=== PATIENT | male | born 1965 | race Caucasian/White ===

== ENCOUNTER 2017-05-14 16:14 | Emergency (ER) | payer BC, OTHER ==
[2017-05-14] MEDS ORDERED: NORMAL SALINE 1,000 ML IV ONE (16:39)
[2017-05-14] MEDS ORDERED: LORazepam 2 MG/ML DISP.SYRIN IV ONE (16:39)
[2017-05-14] MEDS ORDERED: ONDANSETRON HCL/PF 2 MG/ML VIAL IV ONE (16:40)
[2017-05-14 16:54] LABS: Hematocrit 40.7 % (42.0-52.0); Hemoglobin 14.7 gm/dL (13.5-18.0); Mean Corpuscular Hemoglobin 33.9 pg (27-31); Mean Corpuscular Hgb Conc 36.1 g/dl (32-36); Mean Platelet Volume 10.6 fl (6.0-9.5); Neutrophil # 6.5 K/mm3 (1.3-6.0); Neutrophil % 82.2 % (42-75.0); Platelet Count 431 K/mm3 (150-450); Red Blood Count 4.33 M/mm3 (4.7-6.0); Red Cell Distribution Width 12.3 % (11.5-14.0); White Blood Count 7.8 K/mm3 (4.0-10.5)
[2017-05-14] MEDS ORDERED: ONDANSETRON HCL/PF 2 MG/ML VIAL ONE (17:10)
[2017-05-14] MEDS ORDERED: LORazepam 2 MG/ML DISP.SYRIN ONE (17:10)
[2017-05-14 17:13] LABS: Albumin * 4.1 gm/dl (3.4-5.0); BUN/Creatinine Ratio 16.8 (9.0-21.6); Bilirubin, Total 0.8 mg/dL (0.0-1.1); Ca. Corrected For Albumin 9.5 mg/dL (8.4-10.2); Calcium * 9.9 mg/dL (7.9-10.9); Carbon Dioxide 26.9 mmol/L (24-32.6); Potassium 3.9 mmol/L (3.4-4.6); Total Protein 8.6 gm/dL (6.2-8.2)
[2017-05-14] MEDS ORDERED: DIATRIZOATE MEGLUMINE, SODIUM 30 ML BTL PO ONE (18:35)
[2017-05-14 18:40] LABS: Urine Bilirubin 1 mg/dl (NEGATIVE); Urine Blood Negative /ul (NEGATIVE); Urine Ketone 15 mg/dL (NEGATIVE); Urine Nitrite Negative (NEGATIVE); Urine Protein 15 mg/dL (NEGATIVE); Urine Urobilinogen Normal (NORMAL); Urine pH 7.5 pH (5.0-7.0)
--- NOTE | 2017-05-14 18:41 | ERNOTE ---
<PitaYong - Last Filed: 05/14/17 19:39> Abdominal HPI - Narrative Date of Service: 05/14/17 - General Chief Complaint: Abdominal Pain Time Seen by Provider: 05/14/17 16:31 Source: patient Exam Limitations: no limitations - Immun/Allergies/Home Medications Immunizatons: IMMUNIZATION HX Immunizations Up to Date No History of Influenza Vaccine No Hx Pneumococcal Vaccination No Allergies/Adverse Reactions: Allergies No Known Allergies Allergy (Unverified 05/14/17 16:37) Home Medications: HOME MEDICATIONS Omeprazole [Prilosec] 40 mg PO DAILY #14 cap 05/14/17 [Last Taken Unknown] Sucralfate [Carafate] 1 gm PO QID #60 oral.susp 05/14/17 [Last Taken Unknown] - History of Present Illness Narrative: Patient presents to the ED for vomiting and abdominal pain. her relates several episodes in the past of severe upper abdominal abd back pain. He has never been seen for these but he was treated at home like a pancreatitis with bowel rest, clear liquids and these Sx would eventually pass. Over the last 4 days he has had 2 severe episodes of this with severe back pain adn upper abdominal pain and recurrent vomiting. Right now he is nauseated but his pain is better, now mild but was severe earlier. He does drink hard liquor dailt, approx 350ml or more per day. No low abdominal pain. no CP or SOB. Has never seen anyone else for this. Timing: intermittent Quality: severe Activities at Onset: none Modifying Factors - (Improves): Present: other - nothing Modifying Factors - (Worsens): Present: other - nothing Associated Symptoms: Present: vomiting, loss of appetite. Absent: chest pain, fever/chills, shortness of breath, swelling/mass in abdomen Prior Abdominal Problems: Present: similar symptoms Prior Treatment: Absent: recently seen Review of Systems - Review of Systems Constitutional: Absent: fever Respiratory: Absent: shortness of breath Cardiology: Absent: chest pain Gastrointestinal/Abdominal: Present: See HPI Genitourinary: Absent: dysuria Skin: Absent: rash Neurological: Absent: weakness All Other Systems: All systems neg except as marked - Patient's Past Medical History Patient History - Medical: Other Patient History - Cardiac/Respiratory: No pertinent hx Patient History - Cancer: No Hx of Cancer Patient History - Surgical Procedures: Noncontributory Patient History - Other: None - Social History Living Situations: home Psych History: No pertinent hx Smoking Status: Never smoker Have you smoked in the past 12 months: No Do you dip or chew tobacco: Yes Alcohol Use: heavy Drug Use: none - Immunizations Immunizations Up to Date: No Hx Pneumococcal Vaccination: No History of Influenza Vaccine: No Physical Exam - Physical Exam General Appearance: Present: alert, no apparent distress Head Exam: Present: normal inspection, no evidence of injury Eye Exam: Normal inspection: bilateral, PERRL: bilateral Ears, Nose, Throat: Present: normal ENT inspection Neck: Present: normal inspection, nontender Respiratory: Present: no respiratory distress, normal breath sounds, no accessory muscle use Cardiovascular/Chest: Present: regular rate, rhythm, normal peripheral pulses Gastrointestinal/Abdominal: Present: normal bowel sounds, nondistended, soft, no organomegaly, other - mild epigastric tendenress. No masses. No guarding or rebound Back Exam: Absent: CVA tenderness (R), CVA tenderness (L) Extremity Exam: Present: normal inspection Neurological Exam: Present: alert, normal mood/affect, no motor/sensory deficits Skin Exam: Present: normal color, warm/dry ED Progress - Results and Orders Patient's Lab Results:: I have reviewed the patient's lab results. - Vital Signs Patient's Vital Signs:: I have reviewed the patient's vital signs. Vital Signs: Vital Signs 05/14/17 16:22 Temperature 36.8 C Pulse Rate 96 Respiratory 20 Rate O2 Sat by Pulse 99 Oximetry - EKG EKG: NSR EKG read: Interp. by me EKG Comments: NSR rate 79. Non-specific ST/T wave changes, no STEMI. - X-Ray X-Ray #1 X-Ray: abdomen Interpretation: Interp. by me X-ray Comments: No real-time radiology reads. No clear obstruction. No clear acute abnormality. - Progress/Reassessment Chief Complaint: Abdominal Pain Progress Note-Subjective: 05/14/17 18:40 Given his Sx will obtain CT. Checked out to Dr Villalobos at shift change pending CT. - Transfer of Care Physician Sign Out: Yong Lema Receiving Physician: Will Villalobos Pending Results: CT/MRI results Departure Clinical Impression: Abdominal pain Qualifiers: Abdominal location: epigastric Qualified Code(s): R10.13 - Epigastric pain Gastritis Qualifiers: Gastritis type: alcoholic Chronicity: acute Gastritis bleeding: presence of bleeding unspecified Qualified Code(s): K29.20 - Alcoholic gastritis without bleeding - Departure Disposition: Home self-care Condition: Stable Instructions: Gastritis, Adult, [id number] Additional Instructions: See your primary care provider in 1-2 weeks. Prescriptions: Omeprazole [Prilosec] 40 mg PO DAILY #14 cap Sucralfate [Carafate] 1 gm PO QID #60 oral.susp <Will Villalobos - Last Filed: 05/15/17 07:11> Abdominal HPI - Immun/Allergies/Home Medications Immunizatons: IMMUNIZATION HX Immunizations Up to Date No History of Influenza Vaccine No Hx Pneumococcal Vaccination No ED Progress - Results and Orders Patient's Lab Results:: I have reviewed the patient's lab results. Results and Orders: Laboratory Tests 05/14/17 05/14/17 05/14/17 16:00 16:50 16:50 WBC 7.8 Hgb 14.7 Hct 40.7 L Plt Count 431 Neutrophils % 82.2 H Sodium 138 Potassium 3.9 Chloride 99 Carbon Dioxide 26.9 BUN 21 Creatinine 1.25 Random Glucose 123 H Calcium 9.9 Total Bilirubin 0.8 AST 30 ALT 55 Alkaline Phosphatase 79 Troponin I Total Protein 8.6 H Albumin 4.1 Amylase 57 Lipase 159 Urine Color [place] Urine Appearance Clear Urine pH 7.5 Ur Specific [place] 1.010 Urine Protein 15 H Urine Glucose (UA) Negative Urine Ketones 15 Urine Blood Negative Urine Nitrate Negative Urine Bilirubin 1 H Urine Ictotest Negative Prot Sulfosalicylic Acd Negative Urine Urobilinogen Normal Ur Leukocyte Esterase Negative Urine RBC None seen Urine WBC None seen Ur Epithelial Cells None seen Urine Bacteria None seen Urine Culture Comments No culture indicated 05/14/17 16:50 WBC Hgb Hct Plt Count Neutrophils % Sodium Potassium Chloride Carbon Dioxide BUN Creatinine Random Glucose Calcium Total Bilirubin AST ALT Alkaline Phosphatase Troponin I Less than 0.017 Total Protein Albumin Amylase Lipase Urine Color Urine Appearance Urine pH Ur Specific [place] Urine Protein Urine Glucose (UA) Urine Ketones Urine Blood Urine Nitrate Urine Bilirubin Urine Ictotest Prot Sulfosalicylic Acd Urine Urobilinogen Ur Leukocyte Esterase Urine RBC Urine WBC Ur Epithelial Cells Urine Bacteria Urine Culture Comments - Vital Signs Patient's Vital Signs:: I have reviewed the patient's vital signs. Vital Signs: Vital Signs 05/14/17 05/14/17 05/14/17 16:22 16:45 17:15 Temperature 36.8 C Pulse Rate 96 89 78 Respiratory 20 18 Rate Blood Pressure 159/102 123/99 O2 Sat by Pulse 99 99 98 Oximetry 05/14/17 05/14/17 05/14/17 17:45 18:15 18:45 Temperature Pulse Rate 82 80 78 Respiratory 18 Rate Blood Pressure 167/104 164/112 124/108 O2 Sat by Pulse 100 100 98 Oximetry 05/14/17 05/14/17 05/14/17 19:15 19:45 20:15 Temperature Pulse Rate 84 78 74 Respiratory 16 16 Rate Blood Pressure 140/98 146/89 142/96 O2 Sat by Pulse 97 97 98 Oximetry 05/14/17 20:45 Temperature Pulse Rate 70 Respiratory 14 Rate Blood Pressure 142/97 O2 Sat by Pulse 98 Oximetry - CT/Ultrasound CT/Ultrasound Narrative: IMPRESSION: 1. FATTY INFILTRATION WITHIN THE LIVER. 2. SIGMOID DIVERTICULOSIS WITHOUT DEFINABLE DIVERTICULITIS. 3. NO DEFINABLE ACUTE ABDOMINAL OR PELVIC PROCESS; CLINICAL CORRELATION REQUIRED. Electronically signed by Shiv Ford M.D.. - Progress/Reassessment Progress Note-Subjective: Discussed CT and lab results with pt and probability of gastritis or ulcer but no definitive evidence at this point. Discussed acid reduction with omeprazole and protective action of carafate. Encouraged follow up even if he is feeling better. Pt expressed understanding
[2017-05-14] MEDS ORDERED: DIATRIZOATE MEGLUMINE, SODIUM 30 ML BTL ONE (18:45)
[2017-05-14 19:02] LABS: Urine Appearance Clear; Urine Bacteria None Seen; Urine Color Orange; Urine RBC None Seen /hpf (0-5); Urine WBC None Seen /hpf (0-5)
[2017-05-14] MEDS ORDERED: OMEPRAZOLE 2 MG/ML BTL PO SCH (21:30)
[2017-05-14] MEDS ORDERED: SUCRALFATE 1 G/10 ML UDC PO ONE (21:31)
[2017-05-14] MEDS ORDERED: PANTOPRAZOLE SODIUM 40 MG TABLET.EC ONE (21:38)
[2017-05-14] MEDS ORDERED: PANTOPRAZOLE SODIUM 40 MG TABLET.EC PO ONE (21:38)
[2017-05-14 22:07] VITALS: BP 143/92
== END 2017-05-14 21:45 | disposition home or self-care (01) ==
LOC: ER 16:14
DX: K29.20 Alcoholic gastritis without bleeding (principal); R10.13 Epigastric pain
CPT/HCPCS: 36415; 74020; 74177; 80053; 81001; 82150; 83690; 84484; 85025; 93005; 96374; 99284; J2405